=== PATIENT | male | born 1955 | race Caucasian/White ===

== ENCOUNTER 2017-04-25 16:40 | Emergency (ER) | payer BC ==
[~2017-04-25] VITALS: Ht 176.5 cm; Wt 81.0 kg
[2017-04-25 16:45] VITALS: TEMP 36.6; Ht 176.5 cm; Wt 81.0 kg
[2017-04-25] MEDS ORDERED: ETOD-146 PO (17:11)
[2017-04-25] MEDS ORDERED: OMEG10007 PO (17:11)
[2017-04-25 17:34] VITALS: BP 128/79; PULSE 66; O2SAT 98
--- NOTE | 2017-04-25 19:02 | EMERGENCY ROOM VISIT NOTE ---
History Report prepared by Christine: Stu Oneil Under the Supervision of: Tawny LaceyO. First contact with patient: 16:49 Chief Complaint: EYE ASSESSMENT Stated Complaint: FLOATERS IN RIGHT EYE History of Present Illness The patient is a 61 year old male who presents to the Emergency Room with complaints of constant right eye floaters that started suddenly around 1515 this afternoon. The patient states that he was watching TV and this happened, and it looked like everything looked like spiderwebs. He states that after 30 minutes it dissipated, and now it is like there are pinpoints all over. He states that it does not change with position, and he has never had anything like this in the past. He denies any eye pain or change in vision. He states that he has no other eye issues, and he does not use any glasses or contacts. He states that 20 years ago he had a corneal scratch on his eye. Pt denies headache, fevers, chest pain, shortness of breath, nausea, vomiting, diarrhea, pain with urination, and melena. No eye pain. Source of History: patient Onset: 1515 Position: eye (right) Quality: other (floaters) Timing: constant Note: Associated symptoms: looks like spiderwebs Review of Systems Pt denies headache, change in vision, fevers, chest pain, shortness of breath, nausea, vomiting, diarrhea, pain with urination, and melena. Past Medical & Surgical Medical Problems: (1) Corneal abrasion Social History Smoking Status: Never Smoker Marital Status: Housing Status: lives with family Current/Historical Medications Scheduled Etodolac (Lodine), 1 TAB PO DAILY Fish Oil (Enterprise-3), 1 CAP PO DAILY Allergies Coded Allergies: No Known Allergies (Unverified , 04/25/17) Physical Exam Vital Signs Date Time Temp Pulse Resp B/P (MAP) Pulse Ox O2 Delivery O2 Flow Rate FiO2 04/25/17 17:34 66 15 128/79 98 04/25/17 16:45 36.6 71 18 132/88 98 Room Air Physical Exam GENERAL: alert, well appearing, well nourished, no distress, non-toxic EYE EXAM: normal conjunctiva, PERRL and EOM's intact. IOP of the right eye is 12 and the left eye is 14. visual rojas intact. OROPHARYNX: no exudate, no erythema, lips, buccal mucosa, and tongue normal and mucous membranes are moist NECK: supple, no nuchal rigidity, no adenopathy, non-tender LUNGS: Clear to auscultation. Normal chest wall mechanics HEART: no murmurs, S1 normal and S2 normal ABDOMEN: abdomen soft, non-tender, normo-active bowel sounds, no masses, no rebound or guarding. BACK: Back is symmetrical on inspection and there is no deformity, no midline tenderness, no CVA tenderness. SKIN: no rashes and no bruising UPPER EXTREMITIES: upper extremities are grossly normal. LOWER EXTREMITIES: No pitting edema. NEURO EXAM: Normal sensorium, cranial nerves II-XII intact, normal speech, no weakness of arms, no weakness of legs. Sensation intact. Funduscopic exam: Difficult to visualize the posterior aspect of the right eye. Slit Lamp exam: Normal conjunctive, no cell/flare. Anterior chamber is deep/ quiet. Visual acuity right eye 20/50 and left eye was 20/30 Medical Decision & Procedures ER Provider Diagnostic Interpretation: Bedside US of the right globe shows no obvious floater. Lens appears intact. Procedure Slit Lamp Examination Indication: Floaters The right eye was visualized. Slit lamp examination was performed in the standard fashion. Sclera was non-injected. Anterior chamber was deep and quiet. No cell or flare. No discharge present. No foreign bodies noted. The patient tolerated the procedure well without complication. ED Course ED COURSE: Vital signs were reviewed and showed hypertension. The patients medical record was reviewed The above diagnostic studies were performed and reviewed. ED treatments and interventions as stated above. 1649: The patient was evaluated in room C1. A complete history and physical examination was performed. 1710: I discussed the patient's case with Dr. Wade, Ophthalmology, and he agrees that it is a possible vitreous detachment. He recommends check ing the confrontational rojas. He will follow up with the patient in two days. 1723: Upon reevaluation, the patient is feeling well.I discussed my findings with the patient and he understands and agrees with the treatment plan. Based on the patients age, coexisting illnesses, exam and lab findings the decision to treat as an outpatient was made. The patient remained stable while under my care. The patient appeared well at the time of discharge. Medical Decision Differential diagnosis includes etiologies such as retinal detachment, acute glaucoma, trauma, foreign body, conjunctivitis, vitreous hemorrhage. Patient is a 61-year-old male who presents the ER for floaters in the right eye which started around 3:15. Patient denies a curtain over his eyes. No change in peripheral vision. Tract of pressures are appropriate. No pain in the eye. Slit-lamp was unremarkable. Ultrasound of the eye shows no large floaters. No tenderness over the temporal artery. Patient is completely neurologically intact. No signs of stroke. Discussed findings with ophthalmology and agree that this is likely a vitreous hemorrhage. Not consistent with retinal detachment. Patient was discharged to follow-up with ophthalmology on Thursday. Any worsening of symptoms he was given strict instructions to return immediately to the ER. Discussed with Pt concerning signs and symptoms to watch out for. Pt was instructed to follow up with their PCP and discussed with the patient their option to return to the ED at anytime for persistent or worsening symptoms. The appropriate anticipatory guidance and out-patient management, including indications for return to the emergency department, were explained at length to the patient and understood. Medication Reconcilliation Current Medication List: was personally reviewed by me Blood Pressure Screening Patient's blood pressure: Elevated blood pressure Blood pressure disposition: Elevated BP felt to be situational Consults Time Called: 1710 Consulting Physician: Dr. Wade, Ophthalmology Returned Call: 1715 I discussed the patient's case with Dr. Wade, Ophthalmology, and he agrees that it is a possible vitreous detachment. He recommends check ing the confrontational rojas. He will follow up with the patient in two days. Impression Primary Impression: Vitreous hemorrhage of right eye Scribe Attestation The scribe's documentation has been prepared under my direction and personally reviewed by me in its entirety. I confirm that the note above accurately reflects all work, treatment, procedures, and medical decision making performed by me. Departure Information Dispostion Home / Self-Care Referrals Timmy Dewitt M.D. (PCP) Forms HOME CARE DOCUMENTATION FORM, IMPORTANT VISIT INFORMATION, WORK / SCHOOL INSTRUCTIONS Patient Instructions Flashes and Floaters, My [facility] Additional Instructions Please follow up with your primary care doctor or if you are a student, [facility] with in the next 24 hours. Any worsening of your symptoms, please return to the ED immediately. This includes any fevers greater than 100.4, pain in the right eye, loss of vision, seeing a curtain come down over your eye, redness of your eye or any other concerning signs or symptoms from your standpoint. You were found to have a blood pressure greater than 120 systolic over 90 diastolic. Due to the new Medicare guidelines, we are now recommending that you follow up with your primary care doctor in regards to this elevated blood pressure. Please follow-up with ophthalmology on Thursday morning.
== END 2017-04-25 17:35 | disposition home or self-care (01) ==
LOC: C.EDB 16:42 → C.EDC 17:35
DX: H43.391 Other vitreous opacities, right eye (principal)